=== PATIENT | female | born 1975 | race Caucasian/White ===

== ENCOUNTER → 2023-06-08 14:22 | Outpatient (CLI) | payer OTHER, SELFPAY ==
--- NOTE | 2023-06-08 14:28 | DI.ECHO.S_ITS ---
[facility]---------+ [facility] +---------+ : : [address] [place] : : : : [id number] : : : : Phone: [phone]+ Echocardiogram Report + + :Name: MIKE AYON Study Date: 06/08/2023 Height: 69 in : :[facility] ReadingLocation: Weight: 136 lb : : Gender: Female BSA: 1.8 m2 : :: 1975 Age: 47 yrs BP: 108/81 mmHg: :Reason For Study: MURMUR, ATRIAL FIBRILLATION : :Ordering Physician: SATURNINO, : :SARAH Guerrero Performed By: [employer] : :Referring: SARAH MATAMOROS : + + Interpretation Summary Normal echo study. Procedure: A two-dimensional transthoracic echocardiogram with color flow and Doppler was performed. The study quality was technically adequate. There is no prior echocardiogram noted for this patient. The patient was in normal sinus rhythm during the exam. The heart rate ranged between 65-87 bpm during the study. Left Ventricle: The left ventricle is normal in size and wall thickness. The ejection fraction is estimated to be 60-65%. There are no focal wall motion abnormalities. Diastolic parameters suggest probable normal left ventricular diastolic function and normal filling pressures. Right Ventricle: The right ventricle is normal in size, thickness and function. Atria: The left atrial size is normal. Right atrial size is normal. Mitral Valve: The mitral valve is normal in structure and function. There is no mitral valve stenosis. There is trace mitral regurgitation. Aortic Valve: The aortic valve is trileaflet. The aortic valve opens well. There is no aortic valve stenosis. There is trace aortic regurgitation. Tricuspid Valve: The tricuspid valve is normal in structure and function. There is no tricuspid stenosis. There is a trace or physiologic amount of tricuspid regurgitation. Pulmonic Valve: The pulmonic valve is normal in structure and function. There is no pulmonic valvular stenosis. There is a trace or physiologic amount of pulmonic regurgitation. Great Vessels: The aortic root is normal size. The dimensions of the ascending aorta are normal. The IVC is dilated (diameter is greater than 2.1 cm) yet it collapses greater than 50% with a sniff. This suggests a right atrial pressure of 8 mm Hg. Pericardium/ Pleura There is no pericardial effusion. There is no pleural effusion. MMode/2D Measurements & Calculations LVIDd: 4.7 cm LVOT diam: 2.0 cm LVIDs: 3.6 cm Ao root diam: 3.0 cm FS: 23.3 % asc Aorta Diam: 3.0 cm IVSd: 0.77 cm Ao Arch Diam (Prox Trans): 2.4 cm LVPWd: 0.68 cm LV allen. diameter/BSA (cm/m^2): 2.7 LV sys. diameter/BSA (cm/m^2): 2.0 LA A2 area: 17.1 cm2 RA long axis: 4.5 cm LA A4 area: 16.2 cm2 RA area: 12.4 cm2 LA length (vol): 4.6 cm RA vol: 29.1 ml LA vol: 51.0 ml RA : 16.6 ml/m2 LA vol index: 29.1 ml/m2 IVC diam: 2.5 cm RVD1 (basal): 3.4 cm RVD2 (mid): 2.7 cm TAPSE: 3.2 cm Doppler Measurements & Calculations Ao V2 max: 169.8 cm/sec LVOT Max Charles: 154.3 cm/sec Ao V2 mean: 111.4 cm/sec LV V1 max P.5 mmHg Ao max P.5 mmHg LV V1 VTI: 31.7 cm Ao mean P.9 mmHg TRACIE(I,D): 3.2 cm2 Ao V2 VTI: 33.1 cm TRACIE(V,D): 3.0 cm2 sev ratio: 0.96 TRACIE indexed to BSA (cm^2/m^2): 1.8 MV E max charles: 85.2 cm/sec PA V2 max: 108.9 cm/sec MV A max charles: 78.0 cm/sec PA V2 mean: 80.8 cm/sec MV E/A: 1.1 PA mean P.8 mmHg Med Peak E' Charles: 17.0 cm/sec E/E' med: 5.0 Lat Peak E' Charles: 16.4 cm/sec E/E' lat: 5.2 E/e' average: 5.1 MV dec time: 0.14 sec SV(LVOT): 104.4 ml Electronically signed by: Rod Dewitt on Reading Physician:06/09/2023 01:18 AM
== END ==
PROVIDERS: PCP Nurse Practitioner Family; Referring Provider Nurse Practitioner Family; Visit Provider Nurse Practitioner Family
DX: I48.91 Unspecified atrial fibrillation (principal); E05.90 Thyrotoxicosis, unspecified without thyrotoxic crisis or storm; R01.1 Cardiac murmur, unspecified; N92.6 Irregular menstruation, unspecified; N95.9 Unspecified menopausal and perimenopausal disorder
CPT/HCPCS: 93306